=== PATIENT | male | born 1960 | race African-American/Black ===

== ENCOUNTER 2017-04-20 15:39 | Emergency (ER) | payer MEDICAID ==
[~2017-04-20] VITALS: Ht 175.3 cm; Wt 91.0 kg
[2017-04-20 15:45] VITALS: BP 160/96
== END 2017-04-20 20:10 | disposition left against medical advice (07) ==
LOC: ER 15:57
DX: M79.1 Myalgia (principal); Z53.21 Procedure and treatment not carried out due to patient leaving prior to being seen by health care provider

== ENCOUNTER 2022-08-26 23:20 | Emergency (ER) | payer MEDICAID ==
[~2022-08-26] VITALS: Ht 175.3 cm; Wt 95.0 kg
[2022-08-26 23:30] VITALS: BP 158/91; PULSE 101; RESP 16; TEMP 98.7; O2SAT 98
[2022-08-26 23:55] LABS: BASOPHILS % 0.6 % (0.0-2.0); HEMATOCRIT. 43.2 % (42.0-52.0); HEMOGLOBIN. 13.9 g/dL (14.0-18.0); LYMPHOCYTES % 8.4 % (20.0-50.0); MEAN CORPUSCULAR HEMOGLOBIN 26.2 pg (28.0-32.0); MEAN CORPUSCULAR VOLUME 81.5 fL (80.0-94.0); MEAN PLATELET VOLUME 9.5 fl (7.4-10.4); PLATELET 222 x1000/uL (130-400); RED CELL DISTRIBUTION WIDTH 14.5 % (11.6-14.6)
[2022-08-27 00:04] LABS: CHLORIDE 105 mEq/L (98-107)
== END 2022-08-27 03:36 | disposition left against medical advice (07) ==
LOC: ER 23:20
DX: Z53.21 Procedure and treatment not carried out due to patient leaving prior to being seen by health care provider (principal)
CPT/HCPCS: 36415; 80053; 85025; 93005; 99281